=== PATIENT | male | born 1980 | race American Indian/Alaskan Native ===

== ENCOUNTER 2020-12-16 08:24 | Emergency (ER) | payer MEDICAID ==
[~2020-12-16] VITALS: Ht 162.6 cm; Wt 73.6 kg
[2020-12-16 09:52] LABS: BASOPHILS % (AUTO) 0.3 % (0-1); EOSINOPHILS % (AUTO) 0.4 % (0-6); HEMATOCRIT 45.2 % (42.0-52.0); HEMOGLOBIN 15.7 g/dl (14.0-17.9); LYMPHOCYTES # (AUTO) 1.9 X10'3 (1.1-4.8); MEAN CORPUSCULAR HEMOGLOBIN 31.2 PG (27.0-31.0); MEAN CORPUSCULAR HGB CONC 34.7 g/dL (33.0-36.5); MEAN PLATELET VOLUME 7.2 FL (7.4-10.4); MONOCYTES # (AUTO) 0.8 X10'3 (0-0.9); MONOCYTES % (AUTO) 9.2 % (2-12); NEUTROPHILS % (AUTO) 68.1 % (42-75); PLATELET COUNT 252 X10'3 (140-440); RED BLOOD COUNT 5.02 X10'6 (4.70-6.10); RED CELL DISTRIBUTION WIDTH 13.3 % (11.5-14.5); WHITE BLOOD COUNT 8.8 X10'3 (4.5-11.0)
[2020-12-16 10:03] LABS: ALANINE AMINOTRANSFERASE 35 U/L (12-78); ALBUMIN 3.6 G/DL (3.4-5.0); ALBUMIN/GLOBULIN RATIO 0.8 (1.1-1.5); ALKALINE PHOSPHATASE 104 IU/L (46-116); ANION GAP 9 (8-16); ASPARTATE AMINO TRANSFERASE 20 U/L (10-37); BILIRUBIN,TOTAL 0.7 MG/DL (0.1-1.0); BLOOD UREA NITROGEN 6 MG/DL (7-18); BUN/CREATININE RATIO 5.9 (5.4-32.0); CALCIUM 8.7 MG/DL (8.5-10.1); CHLORIDE 104 MMOL/L (99-107); CREATININE 1.02 MG/DL (0.60-1.10); ETHANOL < 0.010 GM/DL (0.0-0.010); GLUCOSE 100 MG/DL (70-104); POTASSIUM 3.8 MMOL/L (3.5-5.1); SODIUM 140 MMOL/L (135-145); TOTAL CARBON DIOXIDE 27.4 MMOL/L (24-32); TOTAL PROTEIN 7.9 G/DL (6.4-8.2); eGFR 81 ML/MIN
[2020-12-16 11:01] LABS: CLARITY,URINE CLEAR (Clear); COLOR,URINE YELLOW (Yellow); GLUCOSE, URINE NEGATIVE (Neg); KETONES,URINE NEGATIVE (Neg); LEUKOCYTE ESTERASE ,URINE NEGATIVE (Neg); NITRITES, URINE NEGATIVE (Neg); OCCULT BLOOD,URINE NEGATIVE (Neg); PROTEIN,URINE NEGATIVE (Neg); UA COLLECTION TYPE CLN CATCH MIDSTREAM; UROBILINOGEN,URINE 0.2 E.U/dL (0.2-1.0)
[2020-12-16 11:09] LABS: URINE AMPHETAMINE SCREEN NEGATIVE (Neg); URINE BARBITUATE SCREEN NEGATIVE (Neg); URINE BENZODIAZEPINES SCREEN NEGATIVE (Neg); URINE CANNABINOID SCREEN NEGATIVE (Neg); URINE COCAINE SCREEN NEGATIVE (Neg); URINE METHADONE SCREEN NEGATIVE (Neg); URINE OPIATE SCREEN NEGATIVE (Neg); URINE PHENCYCLIDINE SCREEN NEGATIVE (Neg)
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
[2020-12-16] MEDS ORDERED: NO HOME MEDS (11:40)
--- NOTE | 2020-12-16 13:03 | NUR ---
Patient eating lunch. No distress observed. Continue to monitor.
--- NOTE | 2020-12-16 14:58 | NUR ---
Patient sleeping supine. No distress observed. Continue to monitor.
--- NOTE | 2020-12-16 15:35 | NUR ---
Abdulaziz THORPE, evaluating patient. Continue to monitor.
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
--- NOTE | 2020-12-16 17:07 | NUR ---
Patient given the [employer] to watch. No distress observed. Continue to monitor.
--- NOTE | 2020-12-16 18:29 | NUR ---
Pt sitting in bed quietly watching tv and eating dinner at change of shift.
--- NOTE | 2020-12-16 21:08 | NUR ---
pt laying in bed sleeping rr even and unlabored.
--- NOTE | 2020-12-16 21:37 | NUR ---
pt is awake sitting in bed. Pt states he wants to continue watching tv. Pt was told we will remove tv at 10pm. Commercials and loud and waking him up each time he falls asleep.
--- NOTE | 2020-12-17 00:46 | NUR ---
pt is laying on his back asleep appears to be resting comfortably
--- NOTE | 2020-12-17 03:38 | NUR ---
pt is laying in bed sleeping rr even and unlabored
--- NOTE | 2020-12-17 04:51 | NUR ---
recieved call from Joel at [facility], gave nurse to nurse. They will call back if he's accepted.
[2020-12-17 06:00] VITALS: BP 135/87
--- NOTE | 2020-12-17 06:01 | NUR ---
P/c from Joel garcia pt has been accepted and they will call the [facility] to arrange transportation.
--- NOTE | 2020-12-17 06:36 | NUR ---
Assumed care recieved report from Mei MCALLISTER, patient resting in bed
--- NOTE | 2020-12-17 08:06 | NUR ---
Patient eating breakfast, patient aware of transport with in the hour [facility]
== END 2020-12-17 08:40 ==
LOC: ER 08:25
DX: F32.A Depression, unspecified (principal); R45.851 Suicidal ideations; Z20.822 Contact with and (suspected) exposure to COVID-19
CPT/HCPCS: 36415; 80053; 80305; 80320; 81003; 84443; 85025; 87635; 99285; C9803